=== PATIENT | female | born 1995 | race Caucasian/White ===

== ENCOUNTER → 2018-07-15 | Outpatient (CLI) | payer MEDICAID ==
--- NOTE | 2018-07-15 14:43 | Diagnostic Imaging Report ---
INDICATION: Late care and unknown dates. TECHNIQUE: Multiple real-time grayscale images were obtained over the gravid uterus. COMPARISON: None. FINDINGS: There is a single live fetus in a cephalic presentation. heart rate was recorded at 147 beats per minute. Placenta is to the right. Amniotic fluid volume is normal. survey demonstrates kidneys, bladder and stomach to be unremarkable. Brain is unremarkable. There is a three vessel cord although the cord insertion is not well seen today. The spine is unremarkable. Four-chamber heart view is limited due to position. Biometrical measurements are as follows: Biparietal 7.32 cm, age 29 weeks 3 days. Head circumference 28.57 cm, age 31 weeks 3 days. Abdominal circumference 24.84 cm, age 29 weeks 1 days. Femur length 5.94 cm, age 31 weeks 0 days. Sonographic estimate age: 30 weeks 2 days. Sonographic estimated date of delivery: 09/21/2018. Estimated Weight: 1481 gm (+/- 216 gm). LMP percentile: 2%. heart rate: 147 beats per minute. number: 1 of 1. IMPRESSION: Single live IUP approximately 30 weeks 2 days gestational age. Estimated date of confinement sonographically is 09/21/2018. survey is unremarkable although four-chamber heart view and cord insertion were not well seen on today's study. Dictated by: Dictated on workstation # [id number]
== END ==
LOC: RAD 12:50
PROVIDERS: ATTEND Family Medicine
DX: Z36.89 Encounter for other specified antenatal screening (principal); Z3A.30 30 weeks gestation of pregnancy
CPT/HCPCS: 76805